=== PATIENT | female | born 1940 | race Caucasian/White ===

== ENCOUNTER 2020-07-21 08:30 | Outpatient (CLI) | payer OTHER ==
[2020-07-21] MEDS ORDERED: methylPREDNISolone ACETATE 40 MG/ML ONE (10:14)
[2020-07-21] MEDS ORDERED: BARIUM SULFATE 135 ML SUSP.RECON (E-Z-HD) PO ONE (10:14)
== END 2020-07-21 20:21 | disposition home or self-care (01) ==
LOC: SRD 08:30
PROVIDERS: ATTEND Otolaryngology Plastic Surgery within the Head & Neck
DX: R13.10 Dysphagia, unspecified (principal)
CPT/HCPCS: 74220-TC; J1030

== ENCOUNTER 2022-11-25 17:22 | Inpatient (IN) | payer OTHER ==
[~2022-11-25] VITALS: Ht 154.9 cm; Wt 54.4 kg
--- NOTE | 2022-11-25 17:23 | NUR ---
Patient triaged and placed in waiting room. VSS and patient appears in no acute distress at this time. Accompanied by , awaiting available bed, and MD notified of need for MSE.
--- NOTE | 2022-11-25 17:25 | NUR ---
Dr Perea evaluating patient in the triage room
--- NOTE | 2022-11-25 17:25 | NUR ---
Per Dr Perea no code stroke needs to be call at this time
[2022-11-25 17:33] VITALS: BP_SYST 154; PULSE 85; RESP 18; TEMP 98.3; O2SAT 98
[2022-11-25 17:50] LABS: BASOPHILS # (AUTO) 0.1 K/uL (0.0-0.2); BASOPHILS % (AUTO) 1.1 % (0.0-2.0); EOSINOPHILS # (AUTO) 0.1 K/uL (0.0-0.4); EOSINOPHILS % (AUTO) 1.4 % (0.0-4.0); HEMOGLOBIN 14.8 g/dL (12.0-16.0); LYMPHOCYTES # (AUTO) 1.2 K/uL (1.0-5.5); LYMPHOCYTES % (AUTO) 14.8 % (20.5-51.5); MEAN CORPUSCULAR HEMOGLOBIN 30 pg (27-31); MEAN CORPUSCULAR HGB CONC 32 % (32-36); MEAN CORPUSCULAR VOLUME 93 fL (79.0-98.0); MONOCYTES # (AUTO) 0.6 K/uL (0.0-1.0); MONOCYTES % (AUTO) 7.6 % (1.7-9.3); NEUTROPHILS # (AUTO) 6.3 K/uL (1.8-7.7); NEUTROPHILS % (AUTO) 75.1 % (40.0-70.0); PLATELET COUNT (AUTO) 204 K/uL (130-430); RED BLOOD CELL COUNT(AUTO) 4.97 MIL/uL (4.2-6.2); RED CELL DISTRIBUTION WIDTH 14.2 % (9.0-15.0); WHITE BLOOD COUNT (AUTO) 8.3 K/uL (4.8-10.8)
--- NOTE | 2022-11-25 17:50 | NUR ---
Pt off the unit for CT
--- NOTE | 2022-11-25 18:05 | NUR ---
PT BIB , AWAKE AND ALERT AOX4. NO SOB.. PT C/O NUMBNESS TO LEFT LEG AND BOTH ARM. PT DENIES PAIN. NO SLURRED SPEECH, OR LOSE OF STRENGTH.
--- NOTE | 2022-11-25 18:05 | NUR ---
Pt returned from CT on stable condition
[2022-11-25 18:07] LABS: ANION GAP 12 (5-15); CALCIUM 8.9 mg/dL (8.4-11.0); CHLORIDE 103 mmol/L (98-107); CREATININE 0.92 mg/dL (0.55-1.30); GLUCOSE 100 mg/dL (74-106); UREA NITROGEN, BLOOD 18 mg/dL (8-21)
--- NOTE | 2022-11-25 18:10 | NUR ---
Dr Talavera evaluating patient at bedside
[2022-11-25 18:14] LABS: ALANINE AMINOTRANSFERASE 11 U/L (12-78); ALBUMIN 3.9 g/dL (3.4-4.8); ASPARTATE AMINOTRANSFERASE 17 U/L (10-37); TOTAL BILIRUBIN 0.7 mg/dL (0.0-1.0)
--- NOTE | 2022-11-25 18:15 | NUR ---
Yasmin garcia in [facility] - 11/25/22 at 1844 by [email or web address] Pt returned from CT on stable condition
--- NOTE | 2022-11-25 18:16 | NUR ---
CODE STROKE CALLED
[2022-11-25] MEDS ORDERED: iohexoL 350 mgI/mL, 100 ML INFUS..BTL IV ONE (18:22)
--- NOTE | 2022-11-25 18:45 | NUR ---
TACO GUZMÁN CONTACTED DR DAVIS AND SAID THERE WAS NO STROKE.
[2022-11-25 19:01] LABS: PROTHROMBIN TIME 10.8 SECS (9.5-12.5)
--- NOTE | 2022-11-25 19:20 | NUR ---
REPORT RECIEVED PT CAME IN DUE TO TINGLING IN LEGS PT NAD, EVEN UNLABORED BREATHING NO COMPLAINTS AT BEDSIDE CONNECTED TO CONTINOUS VS MONITORING SAFTEY RAILS UP.
[2022-11-25 19:28] LABS: BILIRUBIN,URINE NEGATIVE (NEGATIVE); COLOR,URINE YELLOW (YELLOW); GLUCOSE,URINE NEGATIVE (NEGATIVE); KETONES,URINE 2+ (NEGATIVE); LEUKOCYTE ESTERASE ,URINE 1+ (NEGATIVE); NITRITE, URINE NEGATIVE (NEGATIVE); PH,URINE 5.5 (5.0-8.0); PROTEIN URINE NEGATIVE (NEGATIVE); UROBILINOGEN,URINE 0.2 (0.2-1.0)
[2022-11-25 19:35] LABS: BLOOD, URINE TRACE (NEGATIVE)
[2022-11-25 19:36] LABS: CLARITY/URINE HAZY (CLEAR)
[2022-11-25 19:49] LABS: RBC,URINE 0-3 /HPF (0-3); WBC,URINE 20-50 /HPF (0-3)
[2022-11-25 19:50] LABS: BACTERIA,URINE FEW /HPF (None Seen); MUCUS,URINE 1+ /LPF (None Seen)
[2022-11-25] MEDS ORDERED: LORazepam 1 MG TABLET PO ONE (21:15)
[2022-11-25] MEDS ORDERED: cefTRIAXone 1 GM in D5W 50 ML IV ONE (21:30)
[2022-11-25] MEDS ORDERED: ASPIRIN 325 MG TABLET PO ONE (21:30)
--- NOTE | 2022-11-25 22:00 | NUR ---
PT ASKED FOR ATIVAN AND ASPIRIN TO BE CRUSHED, PT STATES SHE CANNOT SWALLOW PILLS. CRUSHED PILLS FOR PT AND PLACED IN CUP WITH A SMALL AMOUNT OF WATER REQUEST. NO COMPLAINTS NOTED
[2022-11-25] MEDS ORDERED: cefTRIAXone 1 GM VIAL ONE (22:48)
--- NOTE | 2022-11-26 00:08 | NUR ---
BED SWITCHED OUT FOR HOSPITAL BED PT POSITIONED TO COMFORT.
--- NOTE | 2022-11-26 01:44 | NUR ---
PT AMBULATES TO RR.
--- NOTE | 2022-11-26 02:50 | NUR ---
PT APPEARS SLEEPING CONNECTED TO CONTINOUS VS MONITORING, NAD, VSS EVEN UNLABORED BREATHING POSITIONED TO COMFORT.
[2022-11-26] MEDS ORDERED: LEVO100T PO (04:28)
[2022-11-26] MEDS ORDERED: LORA-258 PO (04:28)
--- NOTE | 2022-11-26 04:30 | NUR ---
PT AMBULATES TO RR THEN BACK TO BED PT CONNECTED TO CONTINOUS VS MONITORING, NAD, VSS EVEN UNLABORED BREATHING POSITIONED TO COMFORT.
--- NOTE | 2022-11-26 06:39 | NUR ---
PT ASKS TO RECIEVE HER MORNING ATIVAN, PT ASKED WHO WAS GOING TO MAKE SURE SHE GETS THE MEDICATION SHE USUALLY TAKES IT AT 8 AM STATED BY PT WILL DEFER TO DAY SHIFT
[2022-11-26] MEDS ORDERED: LEVOTHYROXINE SODIUM 0.1 MG TABLET PO SCH (08:45)
[2022-11-26] MEDS ORDERED: LORazepam 1 MG TABLET PO SCH (09:00)
--- NOTE | 2022-11-26 11:14 | NUR ---
Patient does not wish to proceed with medical care recommended by md. Patient given information related to possible complications, up to and including , which could occur as a result of leaving hospital at this time. Patient verbalizes understanding of risks involved leaving against medical advice. Patient has signed AMA form.
[2022-11-26 11:15] VITALS: BP_SYST 147; PULSE 78; RESP 14; TEMP 98.1; O2SAT 97
== END 2022-11-26 11:14 | disposition left against medical advice (07) | DRG 65 ==
LOC: SED 17:22 → STU 11-26 00:24
PROVIDERS: ADMIT Preventive Medicine Preventive Medicine/Occupational Environmental Medicine; ATTEND Preventive Medicine Preventive Medicine/Occupational Environmental Medicine
DX: I63.9 Cerebral infarction, unspecified (principal); N39.0 Urinary tract infection, site not specified; E03.9 Hypothyroidism, unspecified; I10 Essential (primary) hypertension; Z53.29 Procedure and treatment not carried out because of patient's decision for other reasons; E78.00 Pure hypercholesterolemia, unspecified; R29.701 NIHSS score 1; R20.2 Paresthesia of skin
CPT/HCPCS: 36415; 70450-TC; 70496; 70498; 71045; 76376; 80053; 81000; 82465; 83037; 84484; 85025; 85610-TC; 85730-TC; 87040; 87086; 93005; 96365; 99291; G0378; J0696; Q9967